=== PATIENT | male | born 1975 | race African-American/Black ===

== ENCOUNTER 2017-09-17 07:38 | Emergency (ER) | payer SELFPAY ==
[2017-09-17 07:57] VITALS: BP 139/101
[2017-09-17] MEDS ORDERED: Levalbuterol 1.25MG/0.5ML NEB INH ONE (08:06)
[2017-09-17] MEDS ORDERED: Albuterol/Ipratropium NEB.SOL* Albuterol 2.5 MG/Ipratropium 0.5 MG 3 ML INH ONE (08:10)
--- NOTE | 2017-09-17 08:12 | ED ---
Shortness of Breath - HPI Summary HPI Summary: 42 yo BM remote h/o HTN and asthma c/o and "feeling like his BP is high". States he measured his BP yesterday at a friends' house and SBP was in 170's. Stopped taking his Lisinopril and amlodipine for years due to no insurance - History of Current Complaint Chief Complaint: UCGeneralIllness Time Seen by Provider: 09/17/17 07:53 Hx Obtained From: Patient Onset/Duration: Gradual Onset Current Severity: Moderate Dyspnea At: Rest Alleviating Factors: Nothing Associated Signs & Symptoms: Negative Related History: Obesity - Allergy/Home Medications Allergies/Adverse Reactions: Allergies Allergy/AdvReac Type Severity Reaction Status Date / Time No Known Allergies Allergy Verified 09/17/17 07:54 PMH/Surg Hx/FS Hx/Imm Hx Previously Healthy: No - HTN, Obese and asthma Cardiovascular History: Reports: Hx Hypertension Respiratory History: Reports: Hx Asthma Infectious Disease History: No Infectious Disease History: Denies: Traveled Outside the [place] in Last 30 Days - Social History Alcohol Use: Occasionally Substance Use Type: Reports: None Smoking Status (MU): Light Every Day Tobacco Smoker Type: Cigarettes Amount Used/How Often: 6 CIGS/DAYS Length of Time of Smoking/Using Tobacco: 28 YRS Review of Systems Constitutional: Negative Eyes: Negative ENT: Negative Cardiovascular: Negative Positive: Shortness Of Breath Genitourinary: Negative Musculoskeletal: Negative Skin: Negative Neurological: Negative All Other Systems Reviewed And Are Negative: Yes Physical Exam Triage Information Reviewed: Yes Vital Signs On Initial Exam: Initial Vitals Temp Pulse Resp BP Pulse Ox 36.6 C 104 28 139/101 94 09/17/17 07:48 09/17/17 07:48 09/17/17 07:48 09/17/17 07:48 09/17/17 07:48 Vital Signs Reviewed: Yes Appearance: Positive: Obese Skin: Positive: Warm Head/Face: Positive: Normal Head/Face Inspection Eyes: Positive: Normal ENT: Positive: Normal ENT inspection Respiratory/Lung Sounds: Positive: Decreased Breath Sounds Cardiovascular: Positive: Normal, S1, S2 Abdomen Description: Positive: Nontender Musculoskeletal: Positive: Normal Neurological: Positive: Normal, CN Intact II-III Psychiatric: Positive: Normal AVPU Assessment: Alert Diagnostics - Vital Signs Vital Signs Temp Pulse Resp BP Pulse Ox 09/17/17 07:48 36.6 C 104 28 139/101 94 - Laboratory Lab Statement: Any lab studies that have been ordered have been reviewed, and results considered in the medical decision making process. Course/Dx - Course Course Of Treatment: CXR reveals patchy infiltrates but more hazy in RUL- cannot exclude a small lung mass and in setting of SOB in a smoker- r/o lung mass vs PE, asthma, exacerbation more likely with PNA however advised to go to ER for above reasons - Diagnoses Provider Diagnoses: Dyspnea, HTN (hypertension), Medication refill, PNA (pneumonia), Abnormal chest xray Discharge - Sign-Out/Discharge Documenting (check all that apply): Discharge/Admit/Transfer - Discharge Plan Condition: Stable Disposition: HOME Prescriptions: Albuterol 2.5MG/3ML (0.083%)* [Ventolin 2.5 MG/3 ML NEB.DAVID*] 2.5 mg INH Q6H 30 Days #120 neb.david Albuterol HFA INHALER* [Ventolin HFA Inhaler*] 1 - 2 puff INH Q4H PRN 30 Days # 1 mdi PRN Reason: Sob/Wheezing amLODIPine TAB* [Norvasc 5 mg TAB*] 5 mg PO DAILY 30 Days #30 tab Levofloxacin TAB* [Levaquin TAB*] 750 mg PO DAILY 7 Days #7 tab Lisinopril TAB* [Prinivil TAB 10 MG*] 10 mg PO DAILY 30 Days #30 tab predniSONE TAB* [Deltasone TAB*] 10 mg PO DAILY 5 Days #5 tab Patient Education Materials: Community Acquired Pneumonia (ED), Chronic Hypertension (ED) Additional Instructions: GO TO ER NOW for further evaluation for abnormal chest XR, SOB, and High blood pressure - Billing Disposition and Condition Condition: STABLE Disposition: HOME
--- NOTE | 2017-09-17 08:49 | RAD ---
HISTORY: Shortness of breath COMPARISONS: None VIEWS: 4: Frontal dual-energy and lateral views of the chest. FINDINGS: CARDIOMEDIASTINAL SILHOUETTE: The cardiomediastinal silhouette is normal. KAYLEN: The kaylen are normal. PLEURA: The costophrenic angles are sharp. No pleural abnormalities are noted. LUNG PARENCHYMA: There is patchy linear opacification of the right upper and midlung ybarra. ABDOMEN: The upper abdomen is clear. There is no subphrenic gas. BONES AND SOFT TISSUES: No bone or soft tissue abnormalities are noted. OTHER: None. IMPRESSION: PATCHY AIRSPACE DISEASE OF THE RIGHT LUNG. RECOMMEND FOLLOW-UP UNTIL RESOLUTION TO EXCLUDE UNDERLYING PULMONARY PARENCHYMAL PATHOLOGY.
== END 2017-09-17 09:27 | disposition home or self-care (01) ==
LOC: UCCORT 07:38
DX: R06.00 Dyspnea, unspecified (principal); I10 Essential (primary) hypertension; Z76.0 Encounter for issue of repeat prescription; J18.9 Pneumonia, unspecified organism; R91.8 Other nonspecific abnormal finding of lung field; J45.909 Unspecified asthma, uncomplicated; F17.210 Nicotine dependence, cigarettes, uncomplicated; E66.9 Obesity, unspecified
CPT/HCPCS: 71046; 93005; 99212; A9270-GY; G0463

== ENCOUNTER 2017-10-07 14:35 | Emergency (ER) | payer OTHER ==
[2017-10-07 16:21] VITALS: BP 129/98
--- NOTE | 2017-10-07 16:29 | UC ---
Dental HPI - HPI Summary HPI Summary: Pt reports that his right lower, last molar "broke" in April 2017. The tooth has been relatively dougherty free until the last week. Pt has an appoitnment with a dentist next week, 10/11/17 - History of Current Complaint Stated Complaint: DENTAL COMPLAINT Time Seen by Provider: 10/07/17 16:01 Hx Obtained From: Patient Onset/Duration: Gradual Onset, Still Present, Worse Since - onset Severity: Moderate Pain Intensity: 9 Related History: Other - dental fracture - Allergies/Home Medications Allergies/Adverse Reactions: Allergies Allergy/AdvReac Type Severity Reaction Status Date / Time No Known Allergies Allergy Verified 09/17/17 07:54 Home Medications: Home Medications Budesonide/Formote 160/4.5(NF) [Symbicort 160/4.5 (NF)] 1 puff INH DAILY [History Confirmed 10/07/17] Furosemide [Lasix] 20 mg PO DAILY 10/07/17 [History Confirmed 10/07/17] Potassium Chlor TAB* [Klor Con ER TAB 10 MEQ*] 10 meq PO DAILY 10/07/17 [ History Confirmed 10/07/17] PMH/Surg Hx/FS Hx/Imm Hx Previously Healthy: Yes - Surgical History Surgical History: Yes Surgery Procedure, Year, and Place: LEFT THUMB - Family History Known Family History: Positive: Cardiac Disease - Social History Occupation: Employed Full-time Lives: With Family Alcohol Use: Occasionally Substance Use Type: None Smoking Status (MU): Former Smoker Type: Cigarettes Amount Used/How Often: OCCASSIONAL? Length of Time of Smoking/Using Tobacco: 28 YRS Have You Smoked in the Last Year: Yes Review of Systems Constitutional: Negative Skin: Negative Eyes: Negative ENT: Dental Pain Respiratory: Negative Cardiovascular: Negative Gastrointestinal: Negative Genitourinary: Negative Motor: Negative Neurovascular: Negative Musculoskeletal: Negative Neurological: Negative Psychological: Negative Is Patient Immunocompromised?: No All Other Systems Reviewed And Are Negative: Yes Physical Exam Triage Information Reviewed: Yes Appearance: Pain Distress Vital Signs: Initial Vital Signs Temp 98.1 F 10/07/17 16:14 Pulse 64 10/07/17 16:14 Resp 16 10/07/17 16:14 BP 129/98 10/07/17 16:14 Pulse Ox 100 10/07/17 16:14 Vital Signs Reviewed: Yes Eye Exam: Normal ENT Exam: Normal Dental Exam: Other Dental: Positive: Dental Fracture @ - right lower, last molar, Neck exam: Normal Respiratory Exam: Normal Cardiovascular Exam: Normal Musculoskeletal Exam: Normal Neurological Exam: Normal Psychological Exam: Normal Skin Exam: Normal Dental Complaint Course/Dx - Differential Dx/Diagnosis Differential Diagnosis/Dx: Fractured Tooth Provider Diagnoses: dental fracture Discharge - Sign-Out/Discharge Documenting (check all that apply): Discharge/Admit/Transfer - Discharge Plan Condition: Stable Disposition: HOME Prescriptions: Amoxicillin PO (*) [Amoxicillin 500 MG CAP*] 500 mg PO Q12H #20 cap Lidocaine 2% VISCOUS* [Xylocaine 2% Viscous*] 15 ml SWISH SPIT Q4H PRN #1 btl PRN Reason: Pain predniSONE TAB* [Deltasone 10 MG TAB*] 30 mg PO DAILY #9 tab Patient Education Materials: Acute Dental Trauma (ED), Toothache (ED) Referrals: No Primary Care Phys,NOPCP [Primary Care Provider] - If Needed - Billing Disposition and Condition Condition: STABLE Disposition: Home
== END 2017-10-07 16:39 | disposition home or self-care (01) ==
LOC: UCCORT 14:35
DX: S02.5XXA Fracture of tooth (traumatic), initial encounter for closed fracture (principal); Z87.891 Personal history of nicotine dependence
CPT/HCPCS: 99212; G0463

== ENCOUNTER 2018-04-24 09:03 | Emergency (ER) | payer BC, OTHER ==
[2018-04-24 09:57] VITALS: BP 155/88
--- NOTE | 2018-04-24 10:57 | UC ---
Back Pain HPI - HPI Summary HPI Summary: pt states he moved just wrong a few days ago and got a severe pain in his low back that comes and goes with certain positions. he states this happens on occasion. the pain radiates into his groin which he corrected to " not really my groin but upper thighs". he was doing better but got recurrent pain when he rolled over and reached for his alarm this am. no acute injury, abdominal/testicle pain. no numbness/weakness to arms or legs. no saddle anesthesia or bowel/bladder dysfunction. tx with otc pain patch with no relief. - History of Current Complaint Chief Complaint: UCBackPain Stated Complaint: BACK PAIN Time Seen by Provider: 04/24/18 10:48 Hx Obtained From: Patient Pain Intensity: 9 Alleviating Factor(s): Other - lying flat on his back Associated Signs And Symptoms: Negative: Fever, Weakness, Numbness, Tingling, Abdominal Pain, Flank Pain, Bladder Incontinence, Bowel Incontinence - Allergies/Home Medications Allergies/Adverse Reactions: Allergies Allergy/AdvReac Type Severity Reaction Status Date / Time No Known Allergies Allergy Verified 04/24/18 09:53 Home Medications: Home Medications Carvedilol TAB* [Coreg TAB*] 12.5 mg PO BID 04/24/18 [History Confirmed 04/24/18 ] PMH/Surg Hx/FS Hx/Imm Hx Cardiovascular History: Hypertension Respiratory History: Asthma - Surgical History Surgical History: Yes Surgery Procedure, Year, and Place: LEFT THUMB - Family History Known Family History: Positive: Cardiac Disease - Social History Occupation: Employed Full-time Alcohol Use: Occasionally Substance Use Type: Marijuana Smoking Status (MU): Heavy Every Day Tobacco Smoker Type: Cigarettes Amount Used/How Often: OCCASSIONAL? Length of Time of Smoking/Using Tobacco: 28 YRS Have You Smoked in the Last Year: Yes - Immunization History Vaccination Up to Date: Yes Review of Systems All Other Systems Reviewed And Are Negative: Yes Constitutional: Positive: Negative Skin: Positive: Negative Eyes: Positive: Negative ENT: Positive: Negative Respiratory: Positive: Negative Cardiovascular: Positive: Negative Gastrointestinal: Positive: Negative Genitourinary: Positive: Negative Motor: Positive: Negative Neurovascular: Positive: Negative Musculoskeletal: Positive: Decreased ROM - back Neurological: Positive: Negative Psychological: Positive: Negative Is Patient Immunocompromised?: No Physical Exam Triage Information Reviewed: Yes Appearance: Pain Distress Vital Signs: Initial Vital Signs Temp 97.7 F 04/24/18 09:50 Pulse 75 04/24/18 09:50 Resp 18 04/24/18 09:50 BP 155/88 04/24/18 09:50 Pulse Ox 99 04/24/18 09:50 Vital Signs Reviewed: Yes Eyes: Positive: Conjunctiva Clear ENT: Positive: Normal ENT inspection Neck: Positive: Supple, Nontender, No Lymphadenopathy, Other: - c-spine non tender Respiratory: Positive: Lungs clear, Normal breath sounds Cardiovascular: Positive: RRR, No Murmur, Pulses Normal - BUE's Abdomen Description: Positive: Nontender, No Organomegaly, Soft. Negative: Bruit, CVA Tenderness (R), CVA Tenderness (L), Distended, Guarding, Pulsatile Mass Bowel Sounds: Positive: Present Musculoskeletal: Positive: Other: - Back: no gross deformity, swelling or discoloration. spine is non tender. limited rom throughout due to spasm in low back. Tender over paraspinal mm lumbar region. No saddle anesthesia. 5/5 strength, 2+ reflexes and sensation intact x4. Slow gait while holding low back. Neurological: Positive: Alert Psychological: Positive: Age Appropriate Behavior Skin Exam: Normal Skin: Negative: Rashes Re-Evaluation - Re-Evaluation First Eval Re-Evaluation Time: 11:50 Change: Improved - pt able to roll over and sit up then walk without the pain. Back Pain Course/Dx - Differential Dx/Diagnosis Differential Diagnosis/HQI/PQRI: Aneurysm, Cauda Equina Syndrome, Herniated Disc , Strain Provider Diagnosis: Back pain as manifestation of blood transfusion reaction Discharge - Sign-Out/Discharge Documenting (check all that apply): Patient Departure All imaging exams completed and their final reports reviewed: No Studies - Discharge Plan Condition: Stable Disposition: HOME Prescriptions: Cyclobenzaprine TAB* [Flexeril 10 MG TAB*] 10 mg PO TID PRN #10 tab PRN Reason: Spasms - Back predniSONE TAB* [Deltasone 20 MG TAB*] 40 mg PO DAILY 4 Days #8 tab Patient Education Materials: Back Pain (ED) Forms: *Work Release Referrals: Sarita Gibbs [Primary Care Provider] - 5 Days - Billing Disposition and Condition Condition: STABLE Disposition: Home - Attestation Statements Provider Attestation: I was available for consult. This patient was seen by the GREGG. The patient was not presented to, seen by, or examined by me. -Sayra
[2018-04-24] MEDS ORDERED: predniSONE TAB* 20 MG PO ONE (11:04)
[2018-04-24] MEDS ORDERED: Ketorolac INJ* 60 MG/2 ML VIAL IM ONE (11:04)
== END 2018-04-24 11:58 | disposition home or self-care (01) ==
LOC: UCCORT 09:03
DX: M54.5 Low back pain (principal); Y92.9 Unspecified place or not applicable; Y84.8 Other medical procedures as the cause of abnormal reaction of the patient, or of later complication, without mention of misadventure at the time of the procedure; I10 Essential (primary) hypertension; F17.210 Nicotine dependence, cigarettes, uncomplicated
CPT/HCPCS: 96372; 99212; G0463; J1885; J7512

== ENCOUNTER 2018-09-16 09:08 | Emergency (ER) | payer BC ==
[2018-09-16 09:22] VITALS: BP 169/109
--- NOTE | 2018-09-16 09:34 | UC ---
Respiratory Complaint HPI - HPI Summary HPI Summary: 43-year-old male who coughed hard about 3 days ago and experienced some right upper chest pain more along the midaxillary line. - History of Current Complaint Chief Complaint: UCUpperExtremity Stated Complaint: RIGHT RIB PAIN Time Seen by Provider: 09/16/18 09:17 Hx Obtained From: Patient Onset/Duration: Sudden Onset Timing: Intermittent Episodes - Patient feels it mostly when he is coughing Severity Initially: Moderate Severity Currently: Mild Pain Intensity: 0 Character: Cough: Nonproductive Aggravating Factors: Other Alleviating Factors: Nothing - Coughing Associated Signs And Symptoms: Positive: Negative - Allergies/Home Medications Allergies/Adverse Reactions: Allergies Allergy/AdvReac Type Severity Reaction Status Date / Time No Known Allergies Allergy Verified 09/16/18 09:23 Home Medications: Home Medications Budesonide/Formote 80/4.5(NF) [Symbicort 80/4.5 (NF)] 1 puff INH BID 09/16/18 [ History Confirmed 09/16/18] Sacubitril/Valsartan [Entresto 24 mg-26 mg Tablet] 1 each PO DAILY 09/16/18 [ History Confirmed 09/16/18] PMH/Surg Hx/FS Hx/Imm Hx Previously Healthy: Yes Cardiovascular History: Hypertension, Congestive Heart Failure - Surgical History Surgical History: Yes Surgery Procedure, Year, and Place: LEFT THUMB - Family History Known Family History: Positive: Cardiac Disease - Social History Alcohol Use: Occasionally Substance Use Type: Marijuana Smoking Status (MU): Heavy Every Day Tobacco Smoker Type: Cigarettes Amount Used/How Often: OCCASSIONAL? Length of Time of Smoking/Using Tobacco: 28 YRS Have You Smoked in the Last Year: Yes - Immunization History Vaccination Up to Date: Yes Review of Systems All Other Systems Reviewed And Are Negative: Yes Respiratory: Positive: Cough - Occasional nonproductive cough. Musculoskeletal: Positive: Other: - Right chest wall pain with coughing. Denies any shortness of breath when sitting. Is Patient Immunocompromised?: No Physical Exam Triage Information Reviewed: Yes Appearance: Well-Appearing, No Pain Distress, Well-Nourished Vital Signs: Initial Vital Signs Temp 97.9 F 09/16/18 09:17 Pulse 74 09/16/18 09:17 Resp 16 09/16/18 09:17 BP 169/109 09/16/18 09:17 Pulse Ox 99 09/16/18 09:17 Vital Signs Reviewed: Yes Eyes: Positive: Conjunctiva Clear ENT: Positive: Hearing grossly normal, Pharynx normal, TMs normal, Uvula midline Neck: Positive: Supple, Nontender, No Lymphadenopathy Respiratory: Positive: Lungs clear, Normal breath sounds, No respiratory distress, No accessory muscle use Cardiovascular: Positive: RRR, No Murmur, Pulses Normal, Brisk Capillary Refill Musculoskeletal: Positive: Strength Intact, ROM Intact, No Edema Neurological: Positive: Alert, Muscle Tone Normal Psychological Exam: Normal Respiratory Course/Dx - Course Course Of Treatment: Chest x-ray:negative I believe this is a muscle strain. Pt can apply heat to the area, take Motrin for pain and follow up with his PCP if no improvement. - Differential Dx/Diagnosis Provider Diagnosis: Muscle strain of chest wall Discharge - Sign-Out/Discharge Documenting (check all that apply): Patient Departure All imaging exams completed and their final reports reviewed: Yes - Discharge Plan Condition: Fair Disposition: HOME Patient Education Materials: Muscle Strain (DC) Referrals: Sarita Gibbs [Primary Care Provider] - Additional Instructions: Apply heat to the sore areas. May take Tylenol for pain or ibuprofen. Follow- up with your primary care provider if he develops any worsening symptoms or if no improvement in 4 or 5 days. Avoid movements that cause pain. - Billing Disposition and Condition Condition: FAIR Disposition: Home - Attestation Statements Provider Attestation: Per institutional requirements, I have reviewed the chart, however, I was not consulted specifically or made aware of this patient by the midlevel provider. I did not personally evaluate, interact with , or disposition this patient.
== END 2018-09-16 09:55 | disposition home or self-care (01) ==
LOC: UCCORT 09:08
DX: S29.011A Strain of muscle and tendon of front wall of thorax, initial encounter (principal); R05 Cough; I11.0 Hypertensive heart disease with heart failure; I50.9 Heart failure, unspecified; F17.210 Nicotine dependence, cigarettes, uncomplicated; X58.XXXA Exposure to other specified factors, initial encounter; Y92.9 Unspecified place or not applicable
CPT/HCPCS: 71046; 99211; G0463